=== PATIENT | female | born 1990 | race Caucasian/White ===

== ENCOUNTER 2017-02-19 11:33 | Inpatient (IN) | payer OTHER ==
[~2017-02-19] VITALS: Ht 162.6 cm; Wt 64.0 kg
[2017-02-19] VITALS (208 sets, daily range): BP systolic 123–128; BP diastolic 77–87; PULSE 90–105; TEMP 97.9–98.1; O2SAT 96–99
[~2017-02-19 11:33] MED LIST: BIRTH CONTROL; CIPRO 500MG TA500 MG PO; FLAGYL500 MG PO; MACROBID 1100 MG/CAP PO; NORCO 325 MG-51 TAB PO; NUVARING VAG RING; PHENERGAN 25 TA25 MG PO; PYRIDIUM200 M1 PO
[2017-02-19] MEDS ORDERED: PROZAC 20MG20 MG PO (12:14)
[2017-02-19] MEDS ORDERED: ZYRTEC 10MG10 MG PO (12:15)
[2017-02-19] MEDS ORDERED: ZANTAC 150MG T150 MG (12:15)
[2017-02-19] MEDS ORDERED: PREDNISONE20 MG PO (12:15)
[2017-02-19] MEDS ORDERED: BENADRYL50 MG PO (12:16)
[2017-02-19 19:57] LABS: ADD PATHOLOGY DIFF REVIEW NO
[2017-02-19 19:58] LABS: HEMATOCRIT 43.4 % (37.0-47.0); HEMOGLOBIN 14.9 g/dl (12.5-16.0); MEAN CELL VOLUME 93 fl (80.0-100.0); MEAN CORPUSCULAR HEMOGLOBIN 32 pg (27.0-31.0); MEAN CORPUSCULAR HGB CONC 34 g/dl (33.0-37.0); MEAN PLATELET VOLUME 8.4 fl (7.4-10.4); PLATELET COUNT 315 K/mm3 (130-400); RED BLOOD COUNT 4.69 M/mm3 (4.10-5.30); REDCELL DISTRIBUTION WIDTH-CV 11.8 % (11.5-14.5); WHITE BLOOD COUNT 13.2 K/mm3 (4.8-10.8)
[2017-02-19 20:10] LABS: BILIRUBIN,TOTAL 0.6 mg/dL (0.0-1.0); CREATININE, serum 0.85 mg/dL (0.52-1.25); POTASSIUM 4.2 mmol/L (3.4-5.0); TOTAL PROTEIN 6.7 gm/dL (6.4-8.2)
[2017-02-19 20:41] LABS: BAND 7 % (0-10); NEUTROPHILS 87 % (42.0-75.2); PLATELET ESTIMATE NORMAL (NORMAL); TOTAL CELLS COUNTED 100
[2017-02-20] VITALS (622 sets, daily range): BP systolic 121; BP diastolic 74; PULSE 80–102; TEMP 97.6–97.9; O2SAT 95–98
[2017-02-20] MEDS ORDERED: PREDNISONE20 MG PO (10:04)
== END 2017-02-20 11:20 | disposition home or self-care (01) | DRG 916 ==
LOC: COL.ER 11:33 → ICU 15:15
PROVIDERS: Internal Medicine Cardiovascular Disease
DX: T78.3XXA Angioneurotic edema, initial encounter (principal)
CPT/HCPCS: 99222-AI; 99239; J1200; J2930